=== PATIENT | female | born 1950 | race Caucasian/White ===

== ENCOUNTER 2022-11-03 15:59 | Emergency (ER) | payer OTHER, MEDICARE, SELFPAY ==
--- NOTE | ~2022-11-03 | CT_ITS ---
EXAMINATION: CT brain wo con DATE: 11/03/2022 17:15 INDICATION: fall . TECHNIQUE: Computed tomography (CT) of the head was performed without intravenous contrast. The mA wa s adjusted according to patient size. Iterative reconstruction technique was employed. The dose-lengt h product was 605.33 mGy-cm. COMPARISON: None. FINDINGS: No acute intracranial hemorrhage or extra-axial fluid collection. No hydrocephalus, mass, or herniation. No acute ischemic infarct. Unremarkable dural venous sinus attenuation. No acute osseous abnormality. Right frontal scalp swelling. The aerated spaces are clear. Moderate atrophy and chronic white matter change. Atherosclerotic intracranial calcification. Bilater al lens replacements. IMPRESSION: No acute intracranial process. Reviewed, dictated and finalized at location K.
--- NOTE | ~2022-11-03 | CT_ITS ---
EXAMINATION: CT facial & cervical spine wo DATE: 11/03/2022 17:15 INDICATION: fall TECHNIQUE: Computed tomography (CT) of the maxillofacial region and cervical spine was performed with out intravenous contrast. Automated exposure control and iterative reconstruction technique were empl oyed. The dose-length product was 150.16 mGy-cm. COMPARISON: None FINDINGS: CERVICAL: Vertebral Body Alignment: Intact. Mild grade 1 anterolisthesis at C4-5 and C5-C6, presumably on a deg enerative basis. Focal reversal of the cervical lordosis at C5-6. Craniocervical and atlantoaxial alignment: Moderate degenerative change with pannus. Alignment intact . Osseous structures/fracture: No evidence of a lytic or blastic process in the visualized spine. No e vidence of acute fracture. C3-4 vertebral body and bilateral facet fusion. Cervical soft tissues: The paraspinal soft tissues planes are maintained. Biapical pleural scarring a nd emphysematous change in the lungs. Degenerative changes: Multilevel degenerative disc disease and facet arthropathy. No severe central c anal or neural foraminal narrowing. FACE: Soft Tissues: Mild right frontal scalp swelling. Facial bones: No acute fracture. No lytic or blastic process. Eyes: The globes are intact. The soft tissue planes of the orbits are maintained. Bilateral lens re placements. Paranasal Sinuses: The visualized aerated spaces are clear. Foreign Bodies: No radiopaque foreign bodies. Other Findings: None. IMPRESSION: No acute fracture or traumatic malalignment in the cervical spine. No acute facial bone fracture. Reviewed, dictated and finalized at location K. IMPRESSION: No acute fracture or traumatic malalignment in the cervical spine. No acute fac ial bone fracture.
[2022-11-03 16:08] VITALS: BP 160/78; PULSE 97; RESP 16; TEMP 36.8; O2SAT 98
--- NOTE | 2022-11-03 17:48 | ED.GENADULT ---
HPI - General Adult General Chief complaint: Wound/Laceration <Edgar Lemon PA-C - Last Filed: 11/04/22 04:39> Stated complaint: laceration <NYLA Mora Last Filed: 11/04/22 04:39> Time Seen by Provider: 11/03/22 16:58 <Edgar Lemon PA-C - Last Filed: 11/04/22 04:39> Source: patient and family <NYLA Mora Last Filed: 11/04/22 04:39> Limitations: dementia <NYLA Mora Last Filed: 11/04/22 04:39> History of Present Illness HPI narrative: This is a 72-year-old female with PMH of dementia who presents to the ED with chief complaint of a fall and head wound occurring this afternoon. She resides in an [facility]. Family is here and helping give this history. Apparently patient is A&O x1 at baseline. When I interviewed the patient she is a poor historian regarding the details of the fall. She is able to tell me that she is not having any pain anywhere. Family states that patient has not had any change in her baseline mental capacity or function. Reports laceration to the right upper eyebrow. ECF staff report no syncopal event or shortness of breath or chest pain. Patient is otherwise asymptomatic at this time. <Edgar Lemon PA-C - Last Filed: 11/04/22 04:39> Related Data Allergies/adverse reactions: Allergies Allergy/AdvReac Type Severity Reaction Status Date / Time Penicillins Allergy Mild Rash Verified 11/03/22 18:10 SINUS MEDICINE Allergy Mild Itching Uncoded 12/24/03 07:21 <NYLA Mora Last Filed: 11/04/22 04:39> Review of Systems Review of Systems: CONSTITUTIONAL: Denies fever, chills, or sweats. EYES: Denies visual changes, redness, or discharge. ENT: Denies rhinorrhea, congestion, sore throat, or otalgia. CARDIOVASCULAR: Denies chest pain, palpitations, or edema. RESPIRATORY: Denies cough or dyspnea. GASTROINTESTINAL: Denies abdominal pain, nausea, vomiting, or diarrhea. GENITOURINARY: Denies dysuria or hematuria. SKIN: Endorses skin wound. Denies rash or itching. MUSCULOSKELETAL: Endorses fall. Denies back pain, joint pain, or myalgia. NEUROLOGIC: Denies headache, numbness, dizziness, or weakness. PSYCHIATRIC: Denies anxiety or depression. <Edgar Lemon PA-C - Last Filed: 11/04/22 04:39> Exam Narrative: GENERAL: Well-appearing, well-nourished, and in no acute distress. HEAD: Normocephalic, with a laceration to the right eyebrow region. EYES: PERRLA and EOMI. ENT: Nares clear, no rhinorrhea or epistaxis. Mucous membranes moist. Oropharynx without tonsillar hypertrophy exudate or other lesions. NECK: Supple. No adenopathy or masses. CHEST: No respiratory distress. Clear to auscultation. No wheezes rales or rhonchi HEART: Regular rate and rhythm. No murmur heard. Normal peripheral pulses. ABDOMEN: Soft, nontender, nondistended, normal active bowel sounds. EXTREMITIES: Normal range of motion. No edema. Negative log roll of bilateral hips. FPROM of bilateral hips. No tenderness in the hips or throughout the lower extremities. No TTP throughout the upper extremities. No midline CTLS spine tenderness. No stepoffs or deformities to the spine. SKIN: Warm, dry, no rash. 2.5 cm lac superior to right eyebrow. Bleeding controlled. No obvious foreign bodies. Skin exam throughout the abdomen, back, upper and lower extremities is negative for any ecchymosis or other wounds. No other wounds to the scalp. NEURO: Alert and oriented x1. No focal deficits. Following commands. Able to converse, however often responses are nonsensical which is her baseline. Cranial nerves intact but difficult to assess PSYCH: Normal mood and affect. <Edgar Lemon PA-C - Last Filed: 11/04/22 04:39> Course REDRYING MACHINE OPERATOR/PA Physician Supervision For this patient encounter, I reviewed the REDRYING MACHINE OPERATOR or PA documentation, treatment plan, and medical decision making and I had [id number] time with this patient. I performed all aspects of the MDM as documented. <Lore Knight MD - Last
--- NOTE | 2022-11-03 17:52 | ECG_ITS ---
Measurements Intervals [place] Rate: 95 P: 68 CA: 131 QRS: 62 QRSD: 78 T: 59 QT: 319 QTc: 403 Interpretive Statements SINUS RHYTHM BASELINE ARTIFACT- I, II, III, AVR, AVL, V1, V3, V5-V6 NORMAL ECG NO PREVIOUS ECG AVAILABLE FOR COMPARISON Electronically Signed On 11-03-2022 21:42:59 CDT by Shivam Lloyd D.O.
[2022-11-03 18:12] LABS: Basophils Percent Auto 0.2 % (0.2-1.2); Eosinophils Percent Auto 0.1 % (0-4.4); Hematocrit 26.7 % (37.0-47.0); Hemoglobin 8.5 g/dL (12.0-15.0); Immature Granulocyte Absolute 0.05 K/mm3 (0.00-0.031); Immature Granulocyte Percent A 0.5 % (0-0.5); Lymphocytes Absolute Auto 0.77 K/mm3 (0.9-3.2); Lymphocytes Percent Auto 7.2 % (18.3-44.2); Mean Corpuscular HGB Conc 31.8 g/dl (32-36); Mean Corpuscular Hemoglobin 29.9 pg (26-34); Mean Platelet Volume 9.4 fl (7.4-10.4); Monocytes Percent Auto 9.5 % (2.6-8.5); Neutrophils Absolute Auto 8.8 K/mm3 (1.3-6.7); Neutrophils Percent Auto 82.5 % (45.5-73.1); Platelet Count Result 269 k/mm3 (150-375); Red Blood Count 2.84 M/mm3 (4.2-5.4); Red Cell Distribution Width 15.5 % (11.5-14.5); White Blood Count 10.7 K/mm3 (4.5-10.0)
[2022-11-03 18:28] LABS: Alanine Aminotransferase 42 U/L (6-35); Albumin Level 3.4 g/dL (3.5-5.1); Alkaline Phosphatase 146 U/L (38-126); Anion Gap 5 mmol/L (8-16); Aspartate Amino Transferase 73 U/L (14-36); Bilirubin,Total 0.6 mg/dL (0.2-1.3); Blood Urea Nitrogen 22 mg/dL (7-17); Calcium 7.1 mg/dL (8.4-10.2); Carbon Dioxide 24 mmol/L (22-30); Chloride 111 mmol/L (98-107); Estimated CRCL calculation 32 ml/min; Estimated Glomerular Filt Rate 49; Glucose 105 mg/dL (65-110); Potassium 3.5 mmol/L (3.4-5.0); Sodium 140 mmol/L (137-145)
[2022-11-03 20:10] VITALS: BP 138/76; PULSE 93; RESP 25; O2SAT 96
[2022-11-03] MEDS: LIDOCAINE, EPINEPHRINE, TETRACAINE VISCOUS SOLN 3 ML TOPICAL (20:10)
[2022-11-03] MEDS: MIDAZOLAM HCL (*CRX) 2 MG/2 ML VIAL 1 MG IV PUSH (20:11)
[2022-11-03 20:14] LABS: Appearance Urine Turbid (Clear); Bacteria Urine 4+ /hpf; Bilirubin Urine Negative (Negative); Blood Urine 2+ (Negative); Color Urine Yellow (Yellow); Glucose Urine UA Negative (Negative); Ketones Urine Negative (Negative); Leukocyte Esterase Ur 3+ LEU/UL (Negative); Nitrate Urine Negative (Negative); Non Pathogenic Casts 0-2; Protein Urine 2+ mg/dL (Negative); RBC Urine 0-2 /hpf (0-2); Specific Grav Ur 1.013 (1.001-1.035); Squamous Epithelial Cell Urine None seen /hpf (Few); WBC Urine >100 /hpf; pH Urine 6.5 (5.0-9.0)
[2022-11-03 20:22] LABS: Add Urine Microscopic? YES
[2022-11-03] MEDS: TETANUS,DIPHTHERIA,AC PERTUSSIS ADULT (0.5 ML) BOOSTRIX IM (20:49)
[2022-11-03 21:31] VITALS: BP 144/84; PULSE 104; RESP 28
[2022-11-03 21:46] VITALS: BP 144/76; PULSE 96; RESP 31
[2022-11-03 22:31] VITALS: BP 132/101; PULSE 94; RESP 27; O2SAT 98
--- NOTE | 2022-11-03 22:49 | PC.NURSE ---
[id number] Spoke with Adolfo at [facility]. Updated on pt status and the plan o discharge patient.
[2022-11-03] MEDS: LORazepam INJ (*CRX) 2 MG/ML VIAL 0.5 MG IV PUSH (22:54)
[2022-11-03 23:31] VITALS: BP 145/81; PULSE 95; RESP 29; O2SAT 94
--- NOTE | 2022-11-04 00:31 | PC.NURSE ---
0010 - Attempted to call report, unable to reach anyone.
== END 2022-11-04 00:10 ==
PROVIDERS: Emergency Provider Physician Assistant; PCP Internal Medicine
DX: S01.111A Laceration without foreign body of right eyelid and periocular area, initial encounter (principal); N39.0 Urinary tract infection, site not specified; E83.51 Hypocalcemia; Z23 Encounter for immunization; F03.90 Unspecified dementia, unspecified severity, without behavioral disturbance, psychotic disturbance, mood disturbance, and anxiety; W19.XXXA Unspecified fall, initial encounter
CPT/HCPCS: 12011; 36415; 70450; 70486; 72125; 80053; 81001; 85025; 87086; 90471; 90715; 93005; 96374; 96375; 99284; J2060; J2250